=== PATIENT | female | born 1985 | race Caucasian/White ===

== ENCOUNTER 2018-10-04 14:07 | Inpatient (IN) | payer OTHER ==
[2018-10-04] MEDS ORDERED: Dinoprostone* 10 MG VAG.SUPP VAGINAL ONE (14:58)
--- NOTE | 2018-10-04 15:09 | HP ---
General Information - Reason for Visit 33 yo at 40 weeks and 2 days for induction for post term - General Information Maternal Age: 33 Grav: 1 Para: 0 SAB: 0 IEA: 0 Estimated Due Date: 10/01/18 Determined By: LMP Maternal Blood Type and Rh: O Positive - Results this Serology/RPR Result: Non-Reactive Rubella Result: Immune HBsAg Result: Negative HIV Result: Negative GBS Culture Result: Negative Past Medical History Pertinent Past Medical History: Non-Contributory Pertinent Past Surgical History: None Pertinent Family History: See Records - Antepartal Records Antepartal Records: Reviewed, Uncomplicated Review of Systems Constitutional: Comfortable CV Complaint: No Respiratory: Shortness of Breath: No Genitourinary: No Bleeding, No Leaking Fluid Musculoskeletal: No Complaint Neurological: No Headache Movement: Normal Exam Allergies/Adverse Reactions: Allergies aspirin Allergy (Verified 10/04/18 14:54) Swelling Of Face,Lips,& Throat Penicillins Allergy (Verified 10/04/18 14:54) Swelling Of Face,Lips,& Throat - Measurements Height: 5 ft 3 in Weight: 152 lb Weight in lbs: 152.625210 Body Mass Index (BMI): 26.9 Pre- Weight: 130 lb Weight Gained This : 22 lbs and 0 ozs - Exam Breast: Breast Exam Deferred Extremities: No Edema Heart: Normal Rhythm/Heart Sounds HEENT: No Significant Findings Lungs: Clear Bilaterally Targeted Exam Findings See L&D Outpatient Visit Provider Note for Findings: N/A Cervical Exam: Closed Effacement: 60% Station: -2 Presenting Part: Vertex - confirmed by ultrasound EFM Findings - External Monitor Findings Baseline Heart Rate: 130 External Monitor Findings: Accelerations Present, Variability Moderate Contractions: None Assessment/Plan - Assessment 33 at 40 + weeks for induction of labor - Plan Plan: Cervical Ripening - too posterior for a balloon / will place a cervidil / risks discussed
[2018-10-05] MEDS ORDERED: Lactated Ringers 1000 ML Bag* 1,000 ML IV ONE ×2 (01:01→08:16)
[2018-10-05] MEDS ORDERED: Buffered Lidocaine 1% SYRIN* 1 ML/SYRINGE INTRADERM ONE (01:01)
[2018-10-05] MEDS ORDERED: Promethazine INJ(RESTRICTED)* 25 MG/ML 1 ML VIAL IV PRN (01:03)
[2018-10-05] MEDS ORDERED: Nalbuphine* 10 MG/ML 1 ML VIAL IV PRN ×2 (01:03→04:49)
[2018-10-05] MEDS ORDERED: Promethazine INJ(RESTRICTED)* 25 MG/ML 1 ML VIAL ONE (01:13)
[2018-10-05] MEDS ORDERED: Nalbuphine* 10 MG/ML 1 ML VIAL ONE (01:13)
[2018-10-05 01:30] LABS: ABS Basophils 0.1 10^3/ul (0-0.2); ABS Lymphocytes 1.9 10^3/ul (1.0-4.8); ABS Monocytes 0.9 10^3/ul (0-0.8); ABS Neutrophils 14.2 10^3/ul (1.5-7.7); Eosinophil % 0.3 %; Hematocrit 39 % (35-47); Hemoglobin 12.9 g/dL (12.0-16.0); Lymphocyte % 11.2 %; Mean Corpuscular HGB Conc 33 g/dL (31-36); Mean Corpuscular Hemoglobin 28 pg (27-31); Mean Corpuscular Volume 85 fL (80-97); Mean Platelet Volume 10.3 fL (7.4-10.4); Platelet Count 140 10^3/uL (150-450); Red Blood Count 4.61 10^6 /uL (3.70-4.87); Red Cell Distribution Width 14 % (10-15); White Blood Count 17.2 10^3/uL (3.5-10.8)
[2018-10-05] MEDS ORDERED: Lactated Ringers 1000 ML Bag* 1,000 ML IV SCH ×4 (02:00→15:00)
[2018-10-05] MEDS ORDERED: Nalbuphine* 10 MG/ML 1 ML VIAL IV ONE (04:49)
[2018-10-05] MEDS ORDERED: Promethazine INJ(RESTRICTED)* 25 MG/ML 1 ML VIAL IV ONE (04:53)
[2018-10-05] MEDS ORDERED: OBEPIDURAL* 250 ML EPIDURAL ONE (07:41)
[2018-10-05] MEDS ORDERED: Sodium Citrate/Citric Acid* 15 ML UDC PO PRN (08:16)
[2018-10-05] MEDS ORDERED: Lactated Ringers 1000 ML Bag* 500 ML IV PRN ×2 (08:16)
[2018-10-05] MEDS ORDERED: Famotidine TAB* 20 MG PO PRN (08:16)
[2018-10-05] MEDS ORDERED: Phenylephrine 40 MCG/ML SYRINGE IV PUSH PRN ×2 (08:16)
[2018-10-05] MEDS ORDERED: Oxytocin in LR* 20 UNITS/1,000 ML BAG IVPB ONE (12:18)
[2018-10-05] MEDS ORDERED: Oxytocin in LR* 20 UNITS/1,000 ML BAG IVPB SCH ×2 (13:00→15:00)
[2018-10-05] MEDS ORDERED: Glycerin ADULT SUPP PR PRN (14:57)
[2018-10-05] MEDS ORDERED: Ibuprofen TAB* 600 MG PO PRN (14:57)
--- NOTE | 2018-10-05 15:02 | PROCNOTE ---
[facility] OB: Delivery Note - Delivery A Date of : 10/05/18 Time of : 14:16 [place] Sex: Male Weight at : 6 lb 9 oz Score 1 Minute: 9 Score 5 Minutes: 9 Gestational Age in Weeks and Days at Delivery: 40 Weeks and 4 Days Delivery Method: Spontaneous Vaginal Labor: Induced Did Patient attempt ?: N/A, No Previous Amniotic Fluid: Clear Estimated Blood Loss: 400 Anesthesia/Analgesia: CEI for Labor Delivered By: Salima Castro - Nursery Level of Nursery: Regular/Bedside - Perineum Perineal Injury: 2nd Degree - 2.0 vicryl X2 3.0 vicryl X1 repaired in standard fashion
[2018-10-05] MEDS: Witch Hazel PAD* JAR TOPICAL PRN (17:07)
[2018-10-05] MEDS: Dibucaine 1% 28.35 GM TUBE PR PRN (17:07)
[2018-10-05] MEDS: Acetaminophen TAB* 325 MG PO PRN (18:39)
[2018-10-06] MEDS: Acetaminophen TAB* 325 MG PO PRN (02:51)
[2018-10-06] MEDS: Witch Hazel PAD* JAR TOPICAL PRN (02:51)
[2018-10-06 07:04] LABS: ABS Eosinophils 0.1 10^3/ul (0-0.6); ABS Lymphocytes 1.9 10^3/ul (1.0-4.8); ABS Monocytes 1.1 10^3/ul (0-0.8); ABS Neutrophils 11.5 10^3/ul (1.5-7.7); Eosinophil % 0.6 %; Hematocrit 29 % (35-47); Hemoglobin 9.9 g/dL (12.0-16.0); Mean Corpuscular HGB Conc 34 g/dL (31-36); Mean Corpuscular Hemoglobin 29 pg (27-31); Mean Corpuscular Volume 84 fL (80-97); Mean Platelet Volume 10.3 fL (7.4-10.4); Platelet Count 123 10^3/uL (150-450); Red Blood Count 3.45 10^6 /uL (3.70-4.87); Red Cell Distribution Width 14 % (10-15); White Blood Count 14.5 10^3/uL (3.5-10.8)
[2018-10-06] MEDS: Docusate CAP* 100 MG PO SCH ×4 (08:41→20:09)
[2018-10-06] MEDS: Ferrous Gluconate TAB* 324 MG TAB PO SCH ×2 (08:42→20:09)
[2018-10-06] MEDS: OBEPIDURAL* 250 ML EPIDURAL SCH (21:09)
[2018-10-06] MEDS: Simethicone TAB* 80 MG TAB.CHEW PO SCH (21:10)
[2018-10-07] MEDS: Dibucaine 1% 28.35 GM TUBE PR PRN (03:38)
[2018-10-07] MEDS: Witch Hazel PAD* JAR TOPICAL PRN (03:38)
[2018-10-07] MEDS: Acetaminophen TAB* 325 MG PO PRN (09:32)
[2018-10-07] MEDS: Ferrous Gluconate TAB* 324 MG TAB PO SCH (09:32)
[2018-10-07] MEDS: Docusate CAP* 100 MG PO SCH (09:32)
[2018-10-07 09:46] VITALS: BP 110/54
== END 2018-10-07 13:12 | disposition home or self-care (01) | DRG 807 ==
LOC: MCHOBOUT 14:07 → MCHOB 15:01
PROVIDERS: ADMIT Obstetrics & Gynecology; ATTEND Obstetrics & Gynecology
PROC: 10E0XZZ Delivery of Products of Conception, External Approach (ICD-10-PCS; principal; 2018-10-05)
PROC: 0KQM0ZZ Repair Perineum Muscle, Open Approach (ICD-10-PCS; 2018-10-05)
PROC: 10907ZC Drainage of Amniotic Fluid, Therapeutic from Products of Conception, Via Natural or Artificial Opening (ICD-10-PCS; 2018-10-05)
PROC: 3E0P7VZ Introduction of Hormone into Female Reproductive, Via Natural or Artificial Opening (ICD-10-PCS; 2018-10-05)
PROC: 3E033VJ Introduction of Other Hormone into Peripheral Vein, Percutaneous Approach (ICD-10-PCS; 2018-10-05)
PROC: 4A1HXCZ Monitoring of Products of Conception, Cardiac Rate, External Approach (ICD-10-PCS; 2018-10-05)
DX: O48.0 Post-term pregnancy (principal); O70.1 Second degree perineal laceration during delivery; O90.81 Anemia of the puerperium; Z37.0 Single live birth; Z3A.40 40 weeks gestation of pregnancy; Z88.0 Allergy status to penicillin; Z88.8 Allergy status to other drugs, medicaments and biological substances; Z88.6 Allergy status to analgesic agent
CPT/HCPCS: 36415; 76815; 85025; 86850; 86900; 86901; A9270-GY; J2300; J2550